=== PATIENT | male | born 1990 | race Caucasian/White ===

== ENCOUNTER 2016-11-02 20:03 | Emergency (ER) | payer OTHER ==
[2016-11-02] MEDS ORDERED: IOPAMIDOL 370 (76%) 100 ML VIAL IV ONE (20:04)
[2016-11-02] MEDS ORDERED: KETOROLAC TROMETHAMINE 15 MG/ML VIAL ONE (22:12)
[2016-11-02 22:31] LABS: ABSOLUTE NEUTROPHIL COUNT 9.4 K/mm3 (1.8-7.7); BASO # 0.1 K/mm3 (0.0-0.2); BASO % 0.6 % (0.2-1.0); EOS # 0.1 (0.0-0.5); EOS % 0.6 % (0.9-2.9); HEMATOCRIT 47.4 % (32.0-52.0); HEMOGLOBIN 16.8 gm/l (14.0-18.0); IMM NEUT # 0.1 K/mm3 (0-0.2); IMM NEUT% 0.4 % (0-1); LYMPH # 2.6 (1.0-4.8); LYMPH % 19.4 % (15-45); MEAN CELL VOLUME 88.6 fl (80.0-94.0); MEAN CORPUSCULAR HEMOGLOBIN 31.4 pg (27.0-31.0); MEAN CORPUSCULAR HGB CONC 35.4 g/dl (33.0-37.0); MEAN PLATELET VOLUME 10.8 fl (7.4-10.4); MONO # 1.2 (0.0-0.8); MONO % 8.7 % (4-12); NEUT % 70.3 % (43-75); PLATELET COUNT 261 K/mm3 (130-400); RED CELL DISTRIBUTION WIDTH 11.3 % (11.5-14.5)
[2016-11-02 22:52] LABS: CALCIUM 10.1 mg/dL (8.6-10.3)
[2016-11-02 23:16] LABS: URINE BILIRUBIN NEGATIVE (NEGATIVE); URINE BLOOD 1+ (NEGATIVE); URINE GLUCOSE (UA) NEGATIVE (NEGATIVE); URINE LEUKOCYTE ESTERASE TRACE (NEGATIVE); URINE NITRITE NEGATIVE (NEGATIVE); URINE PROTEIN 1+ (NEGATIVE); URINE UROBILINOGEN NORMAL (0-1 mg/dl)
[2016-11-02 23:17] LABS: URINE APPEARANCE HAZY; URINE COLOR YELLOW
[2016-11-02 23:19] LABS: URINE BACTERIA 1+; URINE EPITHELIAL CELLS 0-1 /hpf
[2016-11-02 23:20] LABS: URINE MUCUS 2+
[2016-11-02] MEDS ORDERED: CEFTRIAXONE SODIUM 250 MG VIAL ONE (23:51)
[2016-11-02] MEDS ORDERED: DOXYCYCLINE HYCLATE 100 MG TABLET ONE (23:58)
--- NOTE | 2016-11-03 08:12 | CT ---
Exam Type: ABD/PELVIS W/ CON Date and Time: 11/02/2016 11:15 PM Clinical information: Lower abdominal and testicular pain. Comparison: None Procedure: Imaging device: NMRKT Aquilion [address] scanner 1 mm axial images were obtained through the abdomen and pelvis. Stacked reconstructed 3, 4 and 5 mm images were photographed in the axial coronal and sagittal planes. No oral contrast was utilized for this examination. 100 ml of Isovue-370 was injected intravenously. Exam: with intravenous contrast. FINDINGS: Lung bases:The visualized lung bases appear to be appropriate with no mass, effusion or consolidation visualized. Liver: the liver is homogeneous with no discrete abnormality visualized. No definite findings of biliary dilatation are observed. Spleen: The spleen is homogeneous and does not appear to be enlarged. Gallbladder: Surgically absent. Pancreas: Normal without enlargement or evidence of adjacent inflammatory changes. Adrenal glands: Normal without enlargement or evidence of adjacent inflammatory changes. Abdominal aorta: The aorta is of normal caliber and appears to be without significant atherosclerotic disease. Kidneys: The kidneys appear to be of symmetric size. There is a 5 mm high attenuation focus seen within the central right kidney suggesting an intrarenal calculus. The ureteral course is difficult to visualize due to the lack of a significant quantity of intra-abdominal mesenteric fat. No definite intraureteral calculus is observed. No evidence of hydronephrosis is seen. Bowel structures: The visualized bowel is of normal caliber without evidence of dilatation or obstruction. No free fluid or mesenteric inflammatory changes are identified. Appendix: Not well visualized. Bladder: Completely decompressed. Hernia: No abdominal wall or inguinal hernia is visualized on this examination. Adenopathy: A questionable 11 mm lymph node is seen along the anterior medial margin of the right iliopsoas muscle on axial image #67. No other adenopathy is visualized. Osseous structures: There are 2 sclerotic foci seen within the proximal right femur which likely reflect bone islands. Pelvic structures: No discrete pelvic abnormalities are visualized in this examination. IMPRESSION: 1. A 5 mm right-sided intrarenal calculus. No definitive ureteral calculus is observed. 2. Nonvisualization of the appendix. 3. A mildly prominent retroperitoneal lymph node along the anterior medial margin of the right iliopsoas muscle. 4. 2 probable bone islands within the proximal right femur. The findings were called to the emergency room at 2345 hours, 11/02/2016, by [facility].
[2016-11-04 14:48] LABS: CHLAMYDIA BD Negative (Negative); N.GONORRHOEAE BD Negative (Negative); SOURCE Urine (())
== END 2016-11-03 00:36 | disposition home or self-care (01) ==
LOC: ED 20:03
DX: N45.1 Epididymitis (principal); Z87.442 Personal history of urinary calculi; Z85.528 Personal history of other malignant neoplasm of kidney; F17.210 Nicotine dependence, cigarettes, uncomplicated
CPT/HCPCS: 87491; 87591; 85025; 87086; 80048; 81001; 74177; 96375; 99284 ×2; 96374; J0696; J1885; A9270; Q9967